=== PATIENT | male | born 1965 | race Caucasian/White ===

== ENCOUNTER 2021-05-27 07:36 | Outpatient (REF) | payer MEDICARE, SELFPAY ==
[2021-05-27 07:56] LABS: MANUAL DIFF FLAG NO
[2021-05-27 08:24] LABS: Basophils Absolute Auto 0.1 X10*3/uL (0.0-0.2); Eosinophils Absolute Auto 0.3 X10*3/uL (0.0-0.4); Eosinophils Percent Auto 2.8 % (0-4); Hematocrit 42.1 % (42-52); Hemoglobin 14.2 g/dl (14.0-18.0); Imm Gran Abs Auto 0.07 X10*3/uL (0.00-0.03); Imm Gran Pct Auto 0.7 % (0.0-0.4); Lymphocytes Absolute Auto 2.7 X10*3/uL (1.2-4.9); Lymphocytes Percent Auto 28.9 % (20-40); Mean Corpuscular HGB Conc 33.7 g/dl (31.0-36.0); Mean Corpuscular Hemoglobin 29.2 pg (27.0-33.0); Mean Corpuscular Volume 86.6 fL (80-98); Mean Platelet Volume 9.5 fL (9.4-12.4); Monocytes Absolute Auto 0.7 X10*3/uL (0.1-1.2); Monocytes Percent Auto 7.6 % (2-11); Neutrophils Absolute Auto 5.5 X10*3/uL (2.0-8.3); Platelet Count 281 X10*3/uL (160-400); Red Blood Count 4.86 X10*6/uL (4.60-5.80); Red Cell Distribution Width 13.6 % (11.0-16.0); White Blood Count 9.4 X10*3/uL (4.8-10.8)
[2021-05-27 08:51] LABS: Alanine Aminotransferase 38 U/L (0-40); Albumin Level 4.2 g/dL (3.5-5.0); Alkaline Phosphatase 138 U/L (39-117); Anion Gap 14 (12-20); Aspartate Amino Transferase 31 U/L (5-37); Bilirubin Direct 0.2 mg/dL (0.0-0.5); Bilirubin Total 0.6 mg/dL (0.0-1.0); Blood Urea Nitrogen 20 mg/dL (9-16); Carbon Dioxide 22 mmol/L (22-29); Chloride 105 mmol/L (96-108); Cholesterol 171 mg/dL; Estimated Glomerular Filt Rate > 60; Glucose Fasting 102 mg/dL (60-99); HDL Cholesterol 36 mg/dL; LDL Cholesterol Calculated 88 mg/dl; Potassium 4.3 mmol/L (3.3-5.1); Sodium 137 mmol/L (135-145); Total Protein 7.3 g/dL (6.5-8.0); Triglycerides 239 mg/dL
[2021-05-27 09:12] LABS: Prostate Specific Antigen Scr 0.17 ng/mL (<0.05-4.0)
== END 2021-05-27 07:37 | disposition home or self-care (01) ==
LOC: HO.LAB 07:36
PROVIDERS: PCP Internal Medicine; Visit Provider Internal Medicine
DX: Z00.00 Encounter for general adult medical examination without abnormal findings (principal); Z12.5 Encounter for screening for malignant neoplasm of prostate; E78.5 Hyperlipidemia, unspecified; R53.83 Other fatigue
CPT/HCPCS: 36415; 80051; 80061; 80076; 82565; 82947; 84153; 84520; 85025

== ENCOUNTER 2021-12-31 10:58 | Outpatient (REF) | payer MEDICARE, SELFPAY ==
--- NOTE | ~2021-12-31 | XR_ITS ---
EXAMINATION: XR FOOT, RIGHT CLINICAL INFORMATION: Pain over the metatarsophalangeal joint. COMPARISON: None TECHNIQUE: AP, lateral, and oblique views of the right foot. FINDINGS: No fracture or dislocation. Alignment is anatomic. Joint spaces are maintained. No periosteal reaction. The soft tissues are unremarkable. Mild hypertrophic spurring of the plantar aponeurosis and Achilles insertion to the calcaneus. XR/XR foot RT min 3V IMPRESSION: Heel spurs. No acute osseous abnormality. No stress reaction.
== END 2021-12-31 10:59 | disposition home or self-care (01) ==
LOC: HO.HMGCX 10:58
PROVIDERS: PCP Internal Medicine; Visit Provider Internal Medicine
DX: M79.671 Pain in right foot (principal)
CPT/HCPCS: 73630

== ENCOUNTER 2022-06-02 07:50 | Outpatient (REF) | payer MEDICARE, SELFPAY ==
[2022-06-02 08:21] LABS: MANUAL DIFF FLAG NO
[2022-06-02 08:46] LABS: Basophils Absolute Auto 0.1 X10*3/uL (0.0-0.2); Basophils Percent Auto 0.7 % (0-2); Eosinophils Absolute Auto 0.2 X10*3/uL (0.0-0.4); Eosinophils Percent Auto 1.9 % (0-4); Hematocrit 41.1 % (42.0-52.0); Hemoglobin 13.8 g/dl (14.0-18.0); Imm Gran Abs Auto 0.03 X10*3/uL (0.00-0.03); Imm Gran Pct Auto 0.4 % (0.0-0.4); Lymphocytes Absolute Auto 1.4 X10*3/uL (1.2-4.9); Lymphocytes Percent Auto 17.6 % (20-40); Mean Corpuscular HGB Conc 33.6 g/dl (31.0-36.0); Mean Corpuscular Hemoglobin 28.6 pg (27.0-33.0); Mean Corpuscular Volume 85.1 fL (80.0-98.0); Mean Platelet Volume 9.6 fL (9.4-12.4); Monocytes Absolute Auto 0.5 X10*3/uL (0.1-1.2); Monocytes Percent Auto 6.6 % (2-11); Neutrophils Absolute Auto 5.9 x10*3/uL (2.0-8.3); Neutrophils Percent Auto 72.8 % (45-73); Platelet Count 253 X10*3/uL (160-400); Red Blood Count 4.83 X10*6/uL (4.60-5.80); Red Cell Distribution Width 13.5 % (11.0-16.0)
[2022-06-02 09:16] LABS: Alanine Aminotransferase 15 U/L (0-40); Albumin Level 4.3 g/dL (3.5-5.0); Alkaline Phosphatase 120 U/L (39-117); Anion Gap 11 (12-20); Aspartate Amino Transferase 22 U/L (5-37); Bilirubin Direct 0.3 mg/dL (0.0-0.5); Bilirubin Total 0.6 mg/dL (0.0-1.0); Blood Urea Nitrogen 24 mg/dL (9-16); Carbon Dioxide 23 mmol/L (22-29); Chloride 106 mmol/L (96-108); Cholesterol 132 mg/dL; Estimated Glomerular Filt Rate > 60; Glucose Fasting 104 mg/dL (60-99); HDL Cholesterol 43 mg/dL; LDL Cholesterol Calculated 74 mg/dl; Potassium 4.1 mmol/L (3.3-5.1); Sodium 136 mmol/L (135-145); Total Protein 7.1 g/dL (6.5-8.0); Triglycerides 79 mg/dL
[2022-06-02 09:26] LABS: Prostate Specific Antigen Scr 0.19 ng/mL (<0.05-4.0)
== END 2022-06-02 07:51 | disposition home or self-care (01) ==
LOC: HO.LAB 07:50
PROVIDERS: PCP Internal Medicine; Visit Provider Internal Medicine
DX: Z00.00 Encounter for general adult medical examination without abnormal findings (principal); Z12.5 Encounter for screening for malignant neoplasm of prostate; R53.83 Other fatigue; E78.5 Hyperlipidemia, unspecified
CPT/HCPCS: 36415; 80051; 80061; 80076; 82565; 82947; 84153; 84520; 85025

== ENCOUNTER 2023-07-10 07:04 | Outpatient (REF) | payer MEDICARE, SELFPAY ==
[2023-07-10 07:16] LABS: MANUAL DIFF FLAG NO
[2023-07-10 07:46] LABS: Basophils Absolute Auto 0.1 X10*3/uL (0.0-0.2); Basophils Percent Auto 0.9 % (0-2); Eosinophils Absolute Auto 0.2 X10*3/uL (0.0-0.4); Eosinophils Percent Auto 1.6 % (0-4); Hematocrit 44.9 % (42.0-52.0); Hemoglobin 14.9 g/dl (14.0-18.0); Imm Gran Abs Auto 0.07 X10*3/uL (0.00-0.03); Imm Gran Pct Auto 0.7 % (0.0-0.4); Lymphocytes Percent Auto 20.1 % (20-40); Mean Corpuscular HGB Conc 33.2 g/dl (31.0-36.0); Mean Corpuscular Hemoglobin 29.6 pg (27.0-33.0); Mean Corpuscular Volume 89.1 fL (80.0-98.0); Mean Platelet Volume 9.6 fL (9.4-12.4); Monocytes Absolute Auto 0.5 X10*3/uL (0.1-1.2); Monocytes Percent Auto 4.7 % (2-11); Neutrophils Absolute Auto 7.1 x10*3/uL (2.0-8.3); Platelet Count 294 X10*3/uL (160-400); Red Blood Count 5.04 X10*6/uL (4.60-5.80); Red Cell Distribution Width 13.4 % (11.0-16.0); White Blood Count 9.8 X10*3/uL (4.8-10.8)
[2023-07-10 08:10] LABS: Alanine Aminotransferase 18 U/L (0-40); Albumin Level 4.4 g/dL (3.5-5.0); Alkaline Phosphatase 134 U/L (39-117); Anion Gap 11 (12-20); Aspartate Amino Transferase 20 U/L (5-37); Bilirubin Total 0.4 mg/dL (0.0-1.0); Blood Urea Nitrogen 25 mg/dL (9-16); Calcium 9.5 mg/dL (8.4-10.2); Carbon Dioxide 25 mmol/L (22-29); Chloride 107 mmol/L (96-108); Cholesterol 158 mg/dL (<200); Estimated Glomerular Filt Rate > 60; Glucose Fasting 109 mg/dL (60-99); HDL Cholesterol 37 mg/dL (>40); LDL Cholesterol Calculated 89 mg/dL (<100); Potassium 4.5 mmol/L (3.3-5.1); Sodium 138 mmol/L (135-145); Total Protein 7.7 g/dL (6.5-8.0); Triglycerides 160 mg/dL (<150)
[2023-07-10 08:28] LABS: Prostate Specific Antigen 0.28 ng/mL (<0.05-4.0)
== END 2023-07-10 07:05 | disposition home or self-care (01) ==
LOC: HO.LAB 07:04
PROVIDERS: PCP Internal Medicine; Visit Provider Internal Medicine
DX: R53.83 Other fatigue (principal); E78.5 Hyperlipidemia, unspecified; Z12.5 Encounter for screening for malignant neoplasm of prostate
CPT/HCPCS: 36415; 80053; 80061; 84153; 85025

== ENCOUNTER 2024-07-18 07:09 | Outpatient (REF) | payer MEDICARE, SELFPAY ==
[2024-07-18 07:24] LABS: MANUAL DIFF FLAG NO
[2024-07-18 07:32] LABS: Basophils Absolute Auto 0.1 X10*3/uL (0.0-0.2); Eosinophils Absolute Auto 0.2 X10*3/uL (0.0-0.4); Eosinophils Percent Auto 2.4 % (0-4); Hematocrit 45.3 % (42.0-52.0); Hemoglobin 15.3 g/dl (14.0-18.0); Imm Gran Abs Auto 0.07 X10*3/uL (0.00-0.03); Imm Gran Pct Auto 0.7 % (0.0-0.4); Lymphocytes Absolute Auto 1.9 X10*3/uL (1.2-4.9); Lymphocytes Percent Auto 19.5 % (20-40); Mean Corpuscular HGB Conc 33.8 g/dl (31.0-36.0); Mean Corpuscular Hemoglobin 29.4 pg (27.0-33.0); Mean Corpuscular Volume 86.9 fL (80.0-98.0); Mean Platelet Volume 9.1 fL (9.4-12.4); Monocytes Absolute Auto 0.7 X10*3/uL (0.1-1.2); Monocytes Percent Auto 6.8 % (2-11); Neutrophils Absolute Auto 6.7 x10*3/uL (2.0-8.3); Neutrophils Percent Auto 69.6 % (45-73); Platelet Count 265 X10*3/uL (160-400); Red Blood Count 5.21 X10*6/uL (4.60-5.80); Red Cell Distribution Width 13.1 % (11.0-16.0); White Blood Count 9.7 X10*3/uL (4.8-10.8)
[2024-07-18 08:09] LABS: Alanine Aminotransferase 34 U/L (0-40); Albumin Level 4.3 g/dL (3.5-5.0); Alkaline Phosphatase 149 U/L (39-117); Anion Gap 9 (12-20); Aspartate Amino Transferase 32 U/L (5-37); Bilirubin Total 0.5 mg/dL (0.0-1.0); Blood Urea Nitrogen 30 mg/dL (9-16); Carbon Dioxide 26 mmol/L (22-29); Chloride 105 mmol/L (96-108); Cholesterol 159 mg/dL (<200); Estimated Glomerular Filt Rate > 60; Glucose Fasting 110 mg/dL (60-99); HDL Cholesterol 45 mg/dL (>40); LDL Cholesterol Calculated 85 mg/dL (<100); Potassium 4.1 mmol/L (3.3-5.1); Sodium 136 mmol/L (135-145); Total Protein 7.6 g/dL (6.5-8.0); Triglycerides 145 mg/dL (<150)
[2024-07-18 08:21] LABS: Prostate Specific Antigen 0.24 ng/mL (<0.05-4.0)
== END 2024-07-18 07:10 | disposition home or self-care (01) ==
LOC: HO.LAB 07:09
PROVIDERS: PCP Internal Medicine; Visit Provider Internal Medicine
DX: E78.5 Hyperlipidemia, unspecified (principal); R53.83 Other fatigue; Z12.5 Encounter for screening for malignant neoplasm of prostate
CPT/HCPCS: 36415; 80053; 80061; 84153; 85025

== ENCOUNTER 2024-10-25 08:56 | Emergency (ER) | payer MEDICARE, SELFPAY ==
--- NOTE | ~2024-10-25 | CT_ITS ---
EXAMINATION: CT HEAD WITHOUT IV CONTRAST HISTORY: unsteadiness, difficulty walking. TECHNIQUE: Unenhanced helical CT of the head was performed per standard departmental protocol. Coronal and sagittal reformats of the head were also evaluated. One or more of the following techniques was used for dose reduction: Automated exposure control, adjustment of the mA and/or kV according to patient size, use of iterative reconstruction technique. DLP: 789 mGy-cm COMPARISON: There are no prior studies for comparison. FINDINGS: BRAIN: The brain parenchyma is unremarkable. There is normal moore/white differentiation. The ventricular system is normal in size and configuration. There is no mass effect or midline shift. No intra- or extra-axial fluid collections are identified. SINUSES: The visualized paranasal sinuses are clear. The mastoid air cells and middle ear cavities are well pneumatized. ORBITS: The visualized orbits are unremarkable. BONES/SOFT TISSUES: The extracranial soft tissues are unremarkable. The calvarium is intact. No suspicious lytic or sclerotic lesions. CT/CT head/brain wo IV con IMPRESSION: Unremarkable unenhanced head CT. Electronically signed by: Carroll Rodriguez MD 10/25/2024 10:07 AM LINDEN
[2024-10-25 08:58] VITALS: BP 157/79; PULSE 68; RESP 20; TEMP 36; O2SAT 98; BMI 29.7
--- NOTE | 2024-10-25 09:16 | ECG_ITS ---
Test Reason : NEURO SYMPTOMS Blood Pressure : */* mmHG Vent. Rate : 68 BPM Atrial Rate : 68 BPM P-R Int : 168 ms QRS Dur : 112 ms QT Int : 398 ms P-R-T Axes : 77 32 23 degrees QTcB Int : 423 ms Normal sinus rhythm Normal ECG No previous ECGs available Referred By: [facility] Electronically Signed By: Senthil Tai
--- NOTE | 2024-10-25 09:16 | ED.NEUROSD ---
HPI - Neuro Symptoms/Deficit General Chief Complaint: Neuro Symptoms/Deficit Stated Complaint: dizzy stumbling lightheaded Time Seen by Provider: 10/25/24 09:16 History of Present Illness ED Provider: Alma Rosa PARIKH Narrative: The patient is a 59-year-old male with a history of chronic back problems for many years for which he takes multiple medications. He took all of his usual nighttime medications yesterday evening at around 21:00 when he went to bed. He woke up at around 02:30 this morning and felt that he was somewhat unsteady on his feet and possibly tilting slightly to the right when he walked. He went back to bed woke up several hours later. He felt that he was somewhat lightheaded and he still felt that he was tilting to the right when he is walking. No significant headache. No chest pain. No shortness of breath. No fever, sweats, chills. Related Data Previous Rx's ?Medication ?Instructions ?Recorded meclizine 25 mg tablet 25 mg PO TID PRN dizziness #10 tabs 10/25/24 Allergies Allergy/AdvReac Type Severity Reaction Status Date / Time No Known Allergies Allergy Verified 10/25/24 09:02 Review of Systems Review of Systems: Yes all other systems are reviewed and are negative [facility] Social History Social History Smoked in Last 30 Days: No Use of substances other than those prescribed or required for medical reasons: No Advance Directives: No Advance Directives Information Provided: Yes Do you have a plan to hurt others: No Plan Physical Exam Vital Signs: Vital Signs: Last Vital Signs Temp 0 F L 10/25/24 11:46 Pulse 56 10/25/24 11:46 Resp 18 10/25/24 11:46 BP 128/68 10/25/24 11:46 Pulse Ox 97 10/25/24 11:46 O2 Del Method Room Air 10/25/24 11:46 BMI result Body Mass Index 29.7 Const: Other: The patient was awake and alert with a normal mental status. He did not appear obviously acutely ill or in distress. HEENT: Other: Face is symmetrical. Mucous membranes moist. Tongue is midline. Eyes: General: appearance normal, both eyes and all related structures Visual Wen: normal visual wen by confrontation Pupils: Equal, round and reactive pupils present EOM: EOMs intact bilaterally Neck: Neck: Yes full ROM Resp: Effort & Inspection: normal respiratory effort Auscultation: clear to auscultation bilaterally Cardio: Rate: regular rate Rhythm: regular rhythm Heart sounds: S1 normal heart sound present and S2 normal heart sound present GI: Other: Abdomen is soft and nontender Skin: Other: skin is dry and unremarkable Neuro: Other: the patient is awake and alert with a normal mental status and normal orientation. He follows commands appropriately. Eye movements are intact. Lateral gaze is intact. Visual wen are intact to confrontation. Face is symmetrical bilaterally, tongue is midline, strength is symmetrical and 5/5 in all 4 extremities. No pronator drift. Finger-nose is normal. Heel-sanchez is normal. Gait is steady. Cranial nerves: Yes Equal, round and reactive pupils present Extrem: Other: No peripheral edema Medications Administered Discontinued Medications Generic Name Dose Route Start Last Admin Trade Name Freq PRN Reason Stop Dose Admin Sodium Chloride 1,000 mls @ 999 mls/hr 10/25/24 09:30 10/25/24 11:31 Ns IV 10/25/24 10:30 Infused .Q1H1M MACARIO Infusion Meclizine HCl 25 mg 10/25/24 11:29 10/25/24 11:41 Meclizine Hcl 25 Mg Tablet PO 10/25/24 11:30 25 mg ONCE ONE Administration Medical Decision Making Medical Decision Making [facility] Narrative: I was asked to see this patient promptly out of concern for a possible case of a stroke. The patient's last known well was yesterday evening when he went to bed at around 22:00. He had apparently woken up at 02:30 this morning to use the bathroom and felt dizzy and lightheaded. He was worried he might be drifting to the right. He went back to sleep and woke up with similar symptoms this morning. He was concerned about these symptoms and came to the emergency room. No significant headache. He has no objective findings on his neurological exam. His EKGs unremarkable. He is in sinus rhythm. A head CT is negative. Labs are unremarkable. He was given a L of IV normal saline and seemed to feel better. My suspicion for a stroke is very low. Whether this is an orthostatic phenomenon or whether this is some mild inner ear dysfunction is much more likely I think. He will be discharged with a prescription for meclizine and should follow up with his regular doctor. He should return if worse. Lab Data 10/25/24 10:00 10/25/24 09:59 Labs: Lab Results 10/25/24 10/25/24 Range/Units 09:59 10:00 WBC 5.3 (4.8-10.8) X10*3/uL RBC 4.60 (4.60-5.80) X10*6/uL Hgb 13.5 L (14.0-18.0) g/dl Hct 39.9 L (42.0-52.0) % MCV 86.7 (80.0-98.0) fL MCH 29.3 (27.0-33.0) pg MCHC 33.8 (31.0-36.0) g/dl RDW 13.6 (11.0-16.0) % Plt Count 260 (160-400) X10*3/uL MPV 9.4 (9.4-12.4) fL Immature Gran % (Auto) 0.4 (0.0-0.4) % Neut % (Auto) 66.9 (45-73) % Lymph % (Auto) 20.9 (20-40) % [place] % (Auto) 8.2 (2-11) % Eos % (Auto) 2.3 (0-4) % Baso % (Auto) 1.3 (0-2) % Lymph # (Auto) 1.1 L (1.2-4.9) X10*3/uL [place] # (Auto) 0.4 (0.1-1.2) X10*3/uL Eos # (Auto) 0.1 (0.0-0.4) X10*3/uL Baso # (Auto) 0.1 (0.0-0.2) X10*3/uL Abs Immat Gran (auto) 0.02 (0.00-0.03) X10*3/uL Absolute Neuts (auto) 3.5 (2.0-8.3) x10*3/uL Absolute Nucleated RBC 0.000 (0.0-0.012) X10*3/uL Nucleated RBC % (auto) 0.0 (0.0-0.2) /100WBC PT 10.3 L (10.9-12.4) SEC INR 0.9 (0.9-1.1) Sodium 139 (135-145) mmol/L Potassium 4.3 (3.3-5.1) mmol/L Chloride 111 H (96-108) mmol/L Carbon Dioxide 24 (22-29) mmol/L Anion Gap 8 L (12-20) BUN 24 H (9-16) mg/dL Creatinine 0.81 (0.5-1.4) mg/dL Estim Creat Clear Calc 139.2 Estimated GFR > 60 Random Glucose 109 (60-115) mg/dL Calcium 9.0 D (8.4-10.2) mg/dL Magnesium 2.2 (1.6-2.6) mg/dL Total Bilirubin 0.3 (0.0-1.0) mg/dL Direct Bilirubin 0.1 (0.0-0.5) mg/dL AST 41 H (5-37) U/L ALT 32 (0-40) U/L Alkaline Phosphatase 133 H (39-117) U/L Troponin I High Sens < 2.7 (<3.5-35.0) ng/L C-Reactive Protein 0.69 H (< or = 0.50) mg/dL B-Natriuretic Peptide 60 (<100) pg/mL Total Protein 7.2 (6.5-8.0) g/dL Albumin 4.0 (3.5-5.0) g/dL Ethyl Alcohol < 10 mg/dL Influenza Type A (PCR) NEGATIVE (Negative) Influenza Type B (PCR) NEGATIVE (Negative) RSV RNA Qual (PCR) NEGATIVE (Negative) SARS-CoV-2 RNA (RT-PCR) NEGATIVE (Negative) Independent Interpretation I performed an independent interpretation of an: EKG Interpretation: EKG at 09:53 shows normal sinus rhythm at 68 beats per minute. It is an unremarkable EKG. Discharge Plan Discharge Clinical Impression: Dizziness Patient Disposition: Home, Self-Care Additional Instructions: Your testing in the emergency room today seems reassuring. It is possible that the symptoms you were experiencing might has been from a dysfunction of your inner ear. The inner ear is the gyroscope of the body and sometimes it can miss function and cause room spinning dizziness. Meclizine is a medication that can sometimes help with the symptoms. If you have ongoing symptoms of room spinning dizziness you may try the meclizine. Please contact your regular doctor's office today to try to get a follow up appointment soon for a 2nd opinion. If you think you are having worsening symptoms or if you develop any additional symptoms please return to the emergency room for another evaluation here. Prescriptions: New meclizine 25 mg tablet 25 mg PO TID PRN (Reason: dizziness) Qty: 10 0RF Referrals: Kenan Pineda MD [Primary Care Provider] - ( Dizziness, possible vertigo) Interventions: ED Discharge Assessment Last Done: 10/25/24 11:46 Discharge Date/Time: 10/25/24 11:47 Print Language: Faroese
[2024-10-25 10:05] VITALS: BP 128/76; PULSE 63; RESP 18; O2SAT 97
[2024-10-25] MEDS: 0.9 % Sodium Chloride 1,000 ML 999 ML IV (10:05)
[2024-10-25 10:06] LABS: MANUAL DIFF FLAG NO
[2024-10-25 10:10] LABS: Basophils Absolute Auto 0.1 X10*3/uL (0.0-0.2); Basophils Percent Auto 1.3 % (0-2); Eosinophils Absolute Auto 0.1 X10*3/uL (0.0-0.4); Eosinophils Percent Auto 2.3 % (0-4); Hematocrit 39.9 % (42.0-52.0); Hemoglobin 13.5 g/dl (14.0-18.0); Imm Gran Abs Auto 0.02 X10*3/uL (0.00-0.03); Imm Gran Pct Auto 0.4 % (0.0-0.4); Lymphocytes Absolute Auto 1.1 X10*3/uL (1.2-4.9); Lymphocytes Percent Auto 20.9 % (20-40); Mean Corpuscular HGB Conc 33.8 g/dl (31.0-36.0); Mean Corpuscular Hemoglobin 29.3 pg (27.0-33.0); Mean Corpuscular Volume 86.7 fL (80.0-98.0); Mean Platelet Volume 9.4 fL (9.4-12.4); Monocytes Absolute Auto 0.4 X10*3/uL (0.1-1.2); Monocytes Percent Auto 8.2 % (2-11); Neutrophils Absolute Auto 3.5 x10*3/uL (2.0-8.3); Neutrophils Percent Auto 66.9 % (45-73); Platelet Count 260 X10*3/uL (160-400); Red Cell Distribution Width 13.6 % (11.0-16.0); White Blood Count 5.3 X10*3/uL (4.8-10.8)
[2024-10-25 10:21] LABS: INTERNATIONAL NORM RATIO 0.9 (0.9-1.1); Prothrombin Time 10.3 SEC (10.9-12.4)
[2024-10-25 10:29] LABS: Alanine Aminotransferase 32 U/L (0-40); Alkaline Phosphatase 133 U/L (39-117); Anion Gap 8 (12-20); Aspartate Amino Transferase 41 U/L (5-37); Bilirubin Direct 0.1 mg/dL (0.0-0.5); Bilirubin Total 0.3 mg/dL (0.0-1.0); Blood Urea Nitrogen 24 mg/dL (9-16); C Reactive Protein 0.69 mg/dL (< or = 0.50); Carbon Dioxide 24 mmol/L (22-29); Chloride 111 mmol/L (96-108); Creatinine Clr Calc Pharmacy 139.2; Estimated Glomerular Filt Rate > 60; Ethanol < 10 mg/dL; Glucose Random 109 mg/dL (60-115); Magnesium 2.2 mg/dL (1.6-2.6); Potassium 4.3 mmol/L (3.3-5.1); Sodium 139 mmol/L (135-145); Total Protein 7.2 g/dL (6.5-8.0)
[2024-10-25 10:38] LABS: Troponin-I High Sensitivity < 2.7 ng/L (<3.5-35.0)
[2024-10-25 10:44] LABS: B Type Natriuretic Peptide 60 pg/mL (<100)
[2024-10-25 11:02] LABS: Influenza A PCR NEGATIVE (Negative); Influenza B PCR NEGATIVE (Negative); Resp Syncy Virus RNA Qual PCR NEGATIVE (Negative); SARS COV2 PCR INHOUSE NEGATIVE (Negative)
[2024-10-25] MEDS: Meclizine HCl 25 MG TABLET PO (11:41)
[2024-10-25 11:46] VITALS: BP 128/68; PULSE 56; RESP 18; TEMP -17.7; TEMP 0; O2SAT 97
== END 2024-10-25 11:47 | disposition home or self-care (01) ==
PROVIDERS: Emergency Provider Emergency Medicine; PCP Internal Medicine
DX: R42 Dizziness and giddiness (principal); R26.81 Unsteadiness on feet; R11.0 Nausea; M54.50 Low back pain, unspecified; Z79.899 Other long term (current) drug therapy; Z51.81 Encounter for therapeutic drug level monitoring; Z03.818 Encounter for observation for suspected exposure to other biological agents ruled out
CPT/HCPCS: 0241U; 36415; 70450; 80048; 80076; 80307; 83735; 83880; 84484; 85025; 85610; 86140; 93005; 96360; 99284; 99285

== ENCOUNTER → 2024-10-25 09:16 | Outpatient (BNV) | payer MEDICARE, SELFPAY | PROVIDERS: Emergency Provider Emergency Medicine; PCP Internal Medicine; Visit Provider Internal Medicine Cardiovascular Disease | DX: R29.818 Other symptoms and signs involving the nervous system (principal) | CPT/HCPCS: 93010 ==

== ENCOUNTER → 2024-10-25 09:17 | Outpatient (BNV) | payer MEDICARE, SELFPAY | PROVIDERS: Emergency Provider Emergency Medicine; PCP Internal Medicine; Visit Provider Radiology Diagnostic Radiology | DX: R26.89 Other abnormalities of gait and mobility (principal) | CPT/HCPCS: 70450 ==

== ENCOUNTER 2025-03-26 14:57 | Outpatient (AMB) | payer MEDICARE, SELFPAY ==
--- NOTE | 2025-03-25 13:00 | MHC.PC.OV ---
Vital Signs 03/25/25 14:52 Height 6 ft 6 in Weight 256 lb BMI 29.6 BP 136/96 H Position Sitting Respiration 16 Pulse 90 Pulse Source Pulse Oximeter Temp 97.9 F Temp Source Temporal Artery Scan Pulse Oximetry (%) 97 Oxygen Delivery Method Room Air Intake Visit Reasons: Est Care/Dr. Pineda ~ herniated disk Victim Advocate Required: No Accompanied by: Self / Same As Patient Allergies No Known Allergies Allergy (Verified 03/26/25 17:39) Medication List - Last Reconciled 03/26/25 by Marta Amato PA-C ibuprofen 800 mg PO TID meclizine 25 mg PO TID PRN oxycodone ER 20 mg PO TID PRN simvastatin 20 mg PO BEDTIME topiramate 100 mg PO BID tramadol 100 mg PO BID PRN Tobacco use date assessed: 03/25/25 Dental Screening Dental Screen Date: 03/25/25 Did you have a dental visit in the last 12 months?: Yes Did you have a dental problem in the last 6 months where you did not have access to dental care?: No Was dental information given to patient?: Patient has dentist HPI Est Care/Dr. Pineda ~ herniated disk HPI Details This is a 60-year-old male with a past medical history of chronic back pain due to herniated disc and lumbar spine L5-S1 with a history of back surgery in 2002 resulting in chronic right foot numbness. He has has had nerve root blocks in the past at [facility] which provided no symptomatic relief. Patient is currently on tramadol 50 mg 2 tablets t.i.d. daily along with OxyContin 20 mg t.i.d. daily. He reports he has been on this regimen for quite some time. He was a patient of Dr. Katrin ray for new patient appointment requesting refills. Patient also has a history of vertigo currently on meclizine 25 mg t.i.d. as needed, ibuprofen 800 mg t.i.d. for his chronic pain, simvastatin 20 mg at bedtime for hypercholesterolemia, topiramate. He denies any acute complaints, dizziness, chest pain, abdominal pain, black or bloody stools. [facility] Medical History Mild hypercholesterolemia Vertigo Chronic pain Family History Father No problems noted. Mother No problems noted. Social History Housing: House Alcohol intake: current Alcohol intake frequency: does not drink Patient Tobacco Use Status: Former Tobacco user service: No Current occupational status: retired Cognitive needs: No Hearing needs: No Vision needs: Yes (reading glasses) Questionnaire PHQ-9 Over the last 2 weeks, how often have you been bothered by any of the following problems? 1. Little interest or pleasure in doing things: not at all 2. Feeling down, depressed, or hopeless: not at all 3. Trouble falling or staying asleep, or sleeping too much: not at all 4. Feeling tired or having little energy: not at all 5. Poor appetite or overeating: not at all 6. Feeling bad about yourself - or that you are a failure or have let yourself or your family down: not at all 7. Trouble concentrating on things, such as reading the newspaper or watching television: not at all 8. Moving or speaking so slowly that other people could have noticed. Or the opposite - being so fidgety or restless that you have been moving around a lot more than usual: not at all 9. Thoughts that you would be better off or of hurting yourself in some way: not at all Total score: 0 Depression Screening Interpretation: Negative Depression Screening Done: Yes 19841 - PHQ-9 Billing: Yes Source: Developed by Drs. Carroll Anderson, Stacia Gardner, Osmel Rios and colleagues, with an educational xi from [employer]. Thrive Questionnaire Date Thrive assessed: 03/25/25 I am a: Patient What is your living situation today?: I have a steady place to live Within the past 12 months, did the food you bought not last and you didn't have the money to get more?: Never true Within the past 12 months, did you worry whether your food would run out before you got money to buy more?: Never true Do you have trouble paying for medicines?: No Do you have trouble getting transportation to medical appointments?: No Do you have trouble paying your heating and electricity bill?: No Do you have trouble taking care of your child, family member or friend?: No Do you have trouble with day-to-day activities such as bathing, preparing meals, shopping, managing finances, etc.?: No Are you currently unemployed and looking for a job?: No Are you interested in more education?: No Please select the resources that you would like help with: None Currently or been in a relationship where the following occur: No concerns reported THRIVE Score: 0 AUDIT C Alcohol Use Questionnaire (AUDIT-C) 1. How often do you have a drink containing alcohol?: Never 3. How often do you have six or more drinks on one occasion?: Never Total Score: 0 Score Reviewed/Action Taken: No TYREE-7 AMB Questionnaire TYREE-7 Date TYREE - 7 assessed: 03/25/25 Feeling nervous, anxious, or on edge: 0 = Not at all Not being able to stop or control worryin = Not at all Worrying too much about different things: 0 = Not at all Trouble relaxin = Not at all Being so restless that it is hard to sit still: 0 = Not at all Becoming easily annoyed or irritable: 0 = Not at all Feeling afraid as if something awful might happen: 0 = Not at all Total TYREE-7 score (0-4 normal; 5-9 mild; 10-14 moderate; 15-21 severe): 0 Source: Developed by Drs. Carroll Anderson, Stacia Gardner, Osmel Rios and colleagues, with an educational xi from [employer]. TYREE-7 Assessment Billing TYREE-7 Assessment Tool: TYREE-7 Assessment 81278 Review of Systems Const All systems reviewed & are unremarkable except as noted in HPI and below Physical exam (Primary Care) Vital Signs: Last Vital Signs Temp 97.9 F 03/25/25 14:52 Pulse 90 03/25/25 14:52 Resp 16 03/25/25 14:52 BP 136/96 H 03/25/25 14:52 Pulse Ox 97 03/25/25 14:52 Oxygen Delivery Method Room Air 03/25/25 14:52 Care Plan Goal for BP management: <140/90 BMI result Body Mass Index 29.6 BMI Assessment/Plan discussion: High BMI High, discussed plan: lifestyle, weight reduction, dietary, physical activity and alcohol moderation Tobacco/Smoking Status: Tobacco use Status Tobacco use date assessed 03/25/25 03/25/25 13:05 Patient Tobacco Use Status Former Tobacco user 03/26/25 14:54 PHQ-9: PHQ-9 Score PHQ-9: Total score 0 03/26/25 14:55 Depression Screening Interpretation: Negative Thrive Assessment: Date of Thrive Assessment Date Thrive assessed 03/25/25 03/25/25 13:05 Currently or been in a relationship where the following occur: No concerns reported Const Other: Appearance: Alert. Oriented X3. No acute distress. Head: Normal external exam. Normocephalic. Atraumatic. Eyes: Pupils are equal, round, and reactive to light. Extraocular movements intact. Conjunctiva and sclera normal. Eyelids normal. Throat: Pharynx normal. Uvula midline. Moist mucous membranes. Neck: Normal inspection. Neck supple. Full range of motion. . Cardiovascular: Normal heart rate and rhythm. Heart sound normal. No murmurs noted. Pulses normal throughout. Respiratory: No respiratory distress. Painless inspiration. Back:Full range of motion noted. Skin: Skin warm and dry. Normal skin color. Normal skin turgor. No rashes/lesions/lacerations noted. Extremities: Extremities exhibit normal range of motion. Neuro: Oriented X 3. No motor deficit. No sensory deficit. Reflexes normal. Results Reviewed Results Reviewed: Labs reviewed patient has mild anemia with an H&H of 13.5/39.9. Platelet count and white blood cell count normal. Chloride 111. Anion gap 8 which is chronic. BUN 24 which is chronic. GFR 60. Creatinine 0.81. Magnesium within normal limits. Calcium normal limits. AST at 41 mildly elevated alkaline phosphate 133 which is chronic. Mild elevation in CRP. All other labs are within normal limits. Patient had cholesterol labs last year which were within normal limits. PSA last year which was then normal limits. Coding Level of Care Code New Pt Level 4 (30044) Complex EM visit Add On G2211 Diagnoses Chronic pain G89.29 Vertigo R42 Mild hypercholesterolemia E78.00 Additional Codes TYREE-7 Assessment Billing - TYREE-7 Assessment Tool: TYREE-7 Assessment 69018 ([id number]) PHQ-9 - 62170 - PHQ-9 Billing: Yes ([id number]) Time Spent (min) 45 Assessment & Plan Assessment & Plan (1) Chronic pain: Code(s): G89.29 - Other chronic pain Category: Medical Plan: We will be reducing the patient's tramadol from 300 mg daily to 200 mg daily and the OxyContin from 20 mg t.i.d. to 20 mg b.i.d. for weeks 1 2 for, weeks 5q8 will be reducing tramadol to 1 tablet t.i.d. and OxyContin 15 mg b.i.d. weeks 9 through 12 we will be reducing the tramadol to 50 mg b.i.d. and OxyContin 10 mg b.i.d., weeks 13 through 16 will be reducing tramadol to 50 mg daily and OxyContin to 10 mg daily week 17 through 20 we will stop tramadol and switch OxyContin to short-acting oxycodone 5 mg b.i.d. PRN weeks 21 through 24 will either continue oxycodone 5 mg b.i.d. or discontinue oxycodone completely at that time (2) Vertigo: Code(s): R42 - Dizziness and giddiness Category: Medical Plan: Patient to continue meclizine condition is chronic and stable will continue to monitor. (3) Mild hypercholesterolemia: Code(s): E78.00 - Pure hypercholesterolemia, unspecified Category: Medical Plan: Patient to continue simvastatin 20 mg at bedtime. Condition is chronic and stable continue to monitor. Plan 1. Chronic pain We will be reducing the patient's tramadol from 300 mg daily to 200 mg daily and the OxyContin from 20 mg t.i.d. to 20 mg b.i.d. for weeks 1 2 for, weeks 5q8 will be reducing tramadol to 1 tablet t.i.d. and OxyContin 15 mg b.i.d. weeks 9 through 12 we will be reducing the tramadol to 50 mg b.i.d. and OxyContin 10 mg b.i.d., weeks 13 through 16 will be reducing tramadol to 50 mg daily and OxyContin to 10 mg daily week 17 through 20 we will stop tramadol and switch OxyContin to short-acting oxycodone 5 mg b.i.d. PRN weeks 21 through 24 will either continue oxycodone 5 mg b.i.d. or discontinue oxycodone completely at that time 2. Vertigo Patient to continue meclizine condition is chronic and stable will continue to monitor. 3. Hypercholesterolemia Patient to continue simvastatin 20 mg at bedtime. Condition is chronic and stable continue to monitor. Orders: Referrals Pain Management Referral G89.29 - Other chronic pain Medications: New ibuprofen 800 mg PO TID 90 tabs 3RF simvastatin 20 mg PO BEDTIME 90 tabs 3RF naloxone 4 mg/actuation (Narcan) spray 1 dose into ONE nostril; alternate nostrils w each dose until help arrives 4 mg intranasal Q2M PRN 2 ea 2RF opioid overdose simvastatin 20 mg PO BEDTIME 90 tabs 1RF topiramate 100 mg PO BID 90 days 180 tabs 3RF topiramate 100 mg PO BID 180 tabs 3RF 90 days tramadol 100 mg (2 x 50 mg) PO BID PRN 120 tabs 0RF pain 30 days oxycodone ER (OxyContin) Partial Fill upon patient request. 20 mg PO BID 30 days 60 tabs 0RF oxycodone ER (OxyContin) Partial Fill upon patient request. 20 mg PO BID 60 tabs 0RF 30 days Changed From meclizine 25 mg PO TID PRN 10 tabs 0RF dizziness To meclizine 25 mg PO TID 90 days PRN 90 tabs 3RF dizziness Refilled meclizine 25 mg PO TID PRN 90 tabs 3RF dizziness 90 days Patient Instructions: 1. Chronic pain We will be reducing the patient's tramadol from 300 mg daily to 200 mg daily and the OxyContin from 20 mg t.i.d. to 20 mg b.i.d. for weeks 1 2 for, weeks 5q8 will be reducing tramadol to 1 tablet t.i.d. and OxyContin 15 mg b.i.d. weeks 9 through 12 we will be reducing the tramadol to 50 mg b.i.d. and OxyContin 10 mg b.i.d., weeks 13 through 16 will be reducing tramadol to 50 mg daily and OxyContin to 10 mg daily week 17 through 20 we will stop tramadol and switch OxyContin to short-acting oxycodone 5 mg b.i.d. PRN weeks 21 through 24 will either continue oxycodone 5 mg b.i.d. or discontinue oxycodone completely at that time 2. Vertigo Patient to continue meclizine condition is chronic and stable will continue to monitor. 3. Hypercholesterolemia Patient to continue simvastatin 20 mg at bedtime. Condition is chronic and stable continue to monitor.
[2025-03-25 14:52] VITALS: BP 136/96; PULSE 90; RESP 16; TEMP 36.6; O2SAT 97; BMI 29.6
--- OUTSIDE RECORDS SUMMARY | 2025-03-26 15:41 | XMS_ITS | Patient Health Record ---
Author Organization [facility] Address [address] [place] [address] Care Team Providers Care Board Filler Name Role Phone Kenan Pineda MD Primary Care Provider Unavailab Danny Caro Unavailable [phone] Allergies Allergen (clinical drug ingredient) Drug/Non Drug Allergy documented on EMR Reaction Allergy Type Onset Date Status steroid pills (uncoded) rash Allergy Active Reason For Referral No Information Medications Medication SIG (Take, Route, Fr equency, Duration) Notes Start Date End Date Status Topiramate 100 MG Oral; Duration: 30 Active Simvastatin 20 MG Oral; Duration: 90 Active traMADol HCl 50 MG 2 tablets Orally Thr ee times a day Active oxyCODONE HCl 20 MG 1 tablet as needed O rally Three times a day 3 x a day 06/03/2019 Active Ibuprofen 800 MG Orally Three times a day Active Social History Tobacco Use: Social History Observation Description Date Details (start date - stop date) Never Smoker NA - NA Tobacco Use/Smoking Question Answer Notes Are you a: nonsmoker Alcohol Screen Question Answer Notes Did you have a drink containing alcohol in the p ast year? No Points 0 Interpretation Negative Plan Of Treatment No Information Insurance Providers Payer Name Payer Address Payer Phone Subscriber Number Group Number Insured Name Patient Relationship to Insured Coverage Start Date Coverage End Date [employer] [address] [place] [address] [id number] Vince Hudson Self - patient is the insured Medical (General) History Medical History History ICD Code Back pain CAD Surgical History Surgery Date(Month/Year) herniated disk repair 05/2003
--- OUTSIDE RECORDS SUMMARY | 2025-03-26 15:42 | XMS_ITS | Patient Health Record ---
Author Organization [facility] Address [address] [place] [address] Care Team Providers Care Data Capture Clerk Name Role Phone Miriam (RETIRED) Kenan LABOY Primary Care Provider Unavailable Saman Valdez Jr Unavailable [phone] Reason For Referral No Information Medications Medication SIG (Take, Route, Fr equency, Duration) Notes Start Date End Date Status Topamax 100mg Active Testosterone gel Act ramiro Simvastatin 20mg Act ramiro OxyCONTIN 20mg Activ e Fluoxetine 20mg Acti ve traMADol HCl 100mg A ctive Ibuprofen 800mg Acti ve OsmoPrep 1.102-0.398 GM 32 tablets Orall y over two days as directed for 2 day(s) 10/06/2011 Active Problems Problem Type SNOMED Code ICD Code Onset Dates Problem Status W/U Status Risk Notes Problem Nonspecific abnormal finding in stool contents (792.1) Active confirmed Plan Of Treatment Future Test Test Name Order Date COLONOSCOPY 10/06/2011 Insurance Providers Payer Name Payer Address Payer Phone Subscriber Number Group Number Insured Name Patient Relationship to Insured Coverage Start Date Coverage End Date MEDICARE OF [employer] [address] [place] [address] [phone] [id number] Self - patient is the insured Medical (General) History Medical History History ICD Code disc disease depression elevated cholesterol low testosterone Surgical History Surgery Date(Month/Year) back surgery
== END 2025-03-26 14:58 | disposition home or self-care (01) ==
LOC: HO.HMCSH 14:58
PROVIDERS: PCP Internal Medicine; Visit Provider Physician Assistant Medical
DX: G89.29 Other chronic pain (principal); R42 Dizziness and giddiness; E78.00 Pure hypercholesterolemia, unspecified

== ENCOUNTER → 2025-03-26 14:57 | Outpatient (BNVA) | payer MEDICARE, SELFPAY | PROVIDERS: PCP Internal Medicine; Visit Provider Physician Assistant Medical | DX: G89.29 Other chronic pain (principal); R42 Dizziness and giddiness; E78.00 Pure hypercholesterolemia, unspecified | CPT/HCPCS: 96127; 99202 ==

== ENCOUNTER 2025-04-29 08:02 | Outpatient (AMB) | payer MEDICARE, SELFPAY ==
--- NOTE | 2025-04-29 08:04 | A.OFFPC_ITS ---
Vital Signs 04/29/25 08:11 Height 6 ft 6 in Weight 257 lb 0.2 oz BMI 29.7 BP 158/76 H Blood Pressure Location Rt brachial Pulse 41 L Pulse Source Pulse Oximeter Temp 98.2 F Temp Source Axillary Pulse Oximetry (%) 97 Intake Visit Reasons: 4 week Allergies No Known Allergies Allergy (Verified 04/29/25 08:42) Medication List - Last Reconciled 04/29/25 by Dez Hernández MD ibuprofen 800 mg PO TID naloxone 4 mg/actuation (Narcan) 4 mg intranasal Q2M PRN oxycodone ER (OxyContin) 20 mg PO BID 30 days simvastatin 20 mg PO BEDTIME topiramate 100 mg PO BID tramadol 100 mg (2 x 50 mg) PO BID PRN 30 days Tobacco use date assessed: 03/25/25 Dental Screening Dental Screen Date: 03/25/25 [facility] Medical History Mild hypercholesterolemia Vertigo Chronic pain Family History Father No problems noted. Mother No problems noted. Social History Housing: House Alcohol intake: current Alcohol intake frequency: does not drink Patient Tobacco Use Status: Former Tobacco user service: No Current occupational status: retired Cognitive needs: No Hearing needs: No Vision needs: Yes (reading glasses) Questionnaire PHQ-9 Over the last 2 weeks, how often have you been bothered by any of the following problems? 1. Little interest or pleasure in doing things: not at all 2. Feeling down, depressed, or hopeless: not at all 3. Trouble falling or staying asleep, or sleeping too much: not at all 4. Feeling tired or having little energy: not at all 5. Poor appetite or overeating: not at all 6. Feeling bad about yourself - or that you are a failure or have let yourself or your family down: not at all 7. Trouble concentrating on things, such as reading the newspaper or watching television: not at all 8. Moving or speaking so slowly that other people could have noticed. Or the opposite - being so fidgety or restless that you have been moving around a lot more than usual: not at all 9. Thoughts that you would be better off or of hurting yourself in some way: not at all Total score: 0 Depression Screening Interpretation: Negative Depression Screening Done: Yes 13748 - PHQ-9 Billing: Yes Source: Developed by Drs. Carroll Anderson, Stacia Gardner, Osmel Rios and colleagues, with an educational xi from [employer]. Thrive Questionnaire Date Thrive assessed: 03/25/25 I am a: Patient What is your living situation today?: I have a steady place to live Within the past 12 months, did the food you bought not last and you didn't have the money to get more?: Never true Within the past 12 months, did you worry whether your food would run out before you got money to buy more?: Never true Do you have trouble paying for medicines?: No Do you have trouble getting transportation to medical appointments?: No Do you have trouble paying your heating and electricity bill?: No Do you have trouble taking care of your child, family member or friend?: No Do you have trouble with day-to-day activities such as bathing, preparing meals, shopping, managing finances, etc.?: No Are you currently unemployed and looking for a job?: No Are you interested in more education?: No Please select the resources that you would like help with: None Currently or been in a relationship where the following occur: No concerns reported THRIVE Score: 0 TYREE-7 AMB Questionnaire TYREE-7 Date TYREE - 7 assessed: 03/25/25 Feeling nervous, anxious, or on edge: 0 = Not at all Not being able to stop or control worryin = Not at all Worrying too much about different things: 0 = Not at all Trouble relaxin = Not at all Being so restless that it is hard to sit still: 0 = Not at all Becoming easily annoyed or irritable: 0 = Not at all Feeling afraid as if something awful might happen: 0 = Not at all Total TYREE-7 score (0-4 normal; 5-9 mild; 10-14 moderate; 15-21 severe): 0 Source: Developed by Drs. Carroll Anderson, Osmel Morrisonoenke and colleagues, with an educational xi from [employer]. TYREE-7 Assessment Billing TYREE-7 Assessment Tool: TYREE-7 Assessment 47994 Physical exam (Primary Care) Tobacco/Smoking Status: Tobacco use Status Tobacco use date assessed 03/25/25 04/29/25 08:09 Patient Tobacco Use Status Former Tobacco user 04/29/25 08:09 PHQ-9: PHQ-9 Score PHQ-9: Total score 0 04/29/25 08:09 Depression Screening Interpretation: Negative Thrive Assessment: Date of Thrive Assessment Date Thrive assessed 03/25/25 04/29/25 08:09 Currently or been in a relationship where the following occur: No concerns reported Coding Level of Care Code Est Pt Level 4 (56802) Complex EM visit Add On G2211 Diagnoses Chronic pain G89.29 Additional Codes TYREE-7 Assessment Billing - TYREE-7 Assessment Tool: TYREE-7 Assessment 81082 ([id number]) PHQ-9 - 70577 - PHQ-9 Billing: Yes ([id number]) Assessment & Plan Assessment & Plan (1) Chronic pain: Code(s): G89.29 - Other chronic pain Category: Medical Plan: Urine screen ordered. Pain contract offered to patient for review. Comprehensive care appt given. OXycontin dosage being reduced. Plan History of Present Illness - The patient is a 60-year-old male presenting with chronic pain management. - The patient reports a reduction in OxyContin from 90 to 60 pills, which he manages by taking one every 12 hours, but experiences pain around the 10th hour. - He expresses concern that further reduction may impact his quality of life and ability to work. - The patient underwent surgery on June 26, 2003, during which a nerve was possibly affected, resulting in 80% numbness in the right foot. - He experiences increased numbness and pain with prolonged walking and st anding. - The patient has been on opioid medication for over 20 years and is concerned about the tapering process. - He is involved with Workman's Compensation, which covers his medication costs, and has legal concerns regarding changes without judicial approval. - Preventative care measures discussed include colon cancer screening, with options for Cologuard or scheduling a colonoscopy. 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 - Legal: Involved with Workman's Compensation for medication coverage. Review of Systems - Neurological: Reports numbness in the right foot and increased pain with prolonged walking. - Musculoskeletal: Reports chronic back pain, exacerbated towards the end of the medication cycle. Physical Exam General: Cooperative and healthy appearing Nutritional Appearance: Well nourished Orientation/consciousness: Patient oriented x3 Limitations: No limitations Head: Normal to inspection General: Appearance normal, both eyes and all related structures Neck: Normal visual inspection Chest: Normal palpation of entire chest wall Respiratory: N ormal respiratory effort Neurology: Patient oriented x3, reports right foot 80% numbness since surgery on June 26, 2003. Results Plan 1. Chronic Pain Management - The plan involves reducing OxyContin dosage to 15 mg twice a day or 10 mg three times a day, with a gradual tapering strategy. - Consideration of transitioning to Suboxone (buprenorphine) for long-term pain management. - Referral to pain management for evaluation and potential alternative therapies. 2. Neuropathy Post-Surgery - Continued monitoring of symptoms and evaluation of pain management effectiveness. 3. Preventative Care: Colon Cancer Screening - Discussion of options for colon cancer screening, including Cologuard or scheduling a colonoscopy. Discussion Notes During the visit, we discussed the need to reduce the dosage of OxyContin due to safety concerns and the potential for transitioning to Suboxone for long-term pain management. I explained the importance of exploring alternative pain management strategies and the necessity of a referral to pain management for further evaluation. We also reviewed the options for colon cancer screening, including Cologuard and colonoscopy, and the need for ongoing monitoring of the patient's symptoms. Patient Instructions - Follow the new OxyContin dosage as prescribed: 15 mg twice a day or 10 mg three times a day. - Consider the option of transitioning to Suboxone for pain management. - Schedule an appointment with pain management for further evaluation and potential alternative therapies. - Discuss colon cancer screening options with your spouse and decide between Cologuard or scheduling a colonoscopy. Orders: Referrals Gastroenterology Referral Z12.11 - Encounter for screening for malignant neoplasm of colon
[2025-04-29 08:11] VITALS: BP 158/76; PULSE 41; TEMP 36.8; O2SAT 97; BMI 29.7
== END 2025-04-29 08:44 | disposition home or self-care (01) ==
LOC: HO.HMCSH 08:02
PROVIDERS: PCP Physician Assistant Medical; Visit Provider Internal Medicine
DX: G89.29 Other chronic pain (principal)

== ENCOUNTER → 2025-04-29 08:02 | Outpatient (BNVA) | payer MEDICARE, SELFPAY | PROVIDERS: PCP Physician Assistant Medical; Visit Provider Internal Medicine | DX: G89.29 Other chronic pain (principal); G62.9 Polyneuropathy, unspecified; Z79.891 Long term (current) use of opiate analgesic | CPT/HCPCS: 96127; 99212 ==

== ENCOUNTER 2025-05-29 09:43 | Outpatient (AMB) | payer MEDICARE, SELFPAY ==
--- OUTSIDE RECORDS SUMMARY | 2016-04-18 21:00 | XMS_ITS | Continuity of Care Document ---
Author Organization [facility] Address [address] [place] [address] Care Team Providers Care Animal Skinner Name Role Phone Abdias Vallejo DO Unavailable Unavailable Allergies, Adverse Reactions, Alerts Substance Reaction Status Criticality methylprednisolone Active No Inform ation Medications Medication Instructions Dosage Effective Dates (start - stop) Status Comments OxyContin 20 mg tablet,extended release take 1 tablet by oral route every 8 hours - Active To be filled Mar. Dx: Postlaminectomy sydrome (722.83) 90 day supply ibuprofen 800 mg tablet take 1 tablet by oral route 3 times every day with food 800 MG - Active 90 day suppl y tramadol 50 mg tablet take 1 - 2 Tablet by oral route every 6 hours as needed 50 MG - Active topiramate 100 mg tablet take 1 Tablet by oral route 2 times every day 100 MG - Active 90 day supply OxyContin 20 mg tablet,extended release take 1 tablet by oral route every 8 hours - Active To be filled Aug Dx: Lumbar postlaminectomy syndrome (722.83) Viagra 25 mg tablet take 1 tablet by oral route every day as needed approximately 1 hour before sexual activity 25 MG - Active Procedures Procedure Date AWILDA OFFICE/OUTPATIENT VISIT, EST ASSAY OF ETHANOL DRUG SCREEN, SINGLE OFFICE/OUTPATIENT VISIT, EST OFFICE/OUTPATIENT VISIT, EST ASSAY OF ETHANOL Drug Screen Multiple Class DRUG SCREEN, SINGLE ASSAY OF ETHANOL OFFICE/OUTPATIENT VISIT, EST DRUG SCREEN, SINGLE ASSAY OF ETHANOL OFFICE/OUTPATIENT VISIT, EST OFFICE/OUTPATIENT VISIT, NEW DRUG SCREEN, SINGLE ASSAY OF ETHANOL Advance Directives Directive Yes / No Effective Date File Name No Information Encounters Encounter Description Practice Location Reason(s) For Visit Diagnoses Date Provider Providers Copied on Encounter [facility], [address], [place], [place], [id number] , [facility] No Information 6 Yoni Calero. [address] [facility], [address], [id number] , [place]. tel:[phone] Referring Provider: Abdias Loomis, [address] [facility] [address] [place] [address], [id number] . tel:[phone] OFFICE/OUTPA TIENT VISIT, [facility], [address], [place], [place], [id number] , [facility] low back pain (chief complaint) Degeneration of lumbar or lumbosacral intervertebral discPostlaminec mir syndrome of lumbar region 4 Yoni Calero. [address] [place] [address], [address] [place] [address], [id number] , [place]. tel:[phone] OFFICE/OUTPA TIENT VISIT, EST [facility], [address], [place], [place], [id number] , [facility] Low back pain (chief complaint) Degeneration of lumbar or lumbosacral intervertebral discPostlaminec mir syndrome of lumbar region 4 Yoni Calero. [address] [place] [address], [address] [place] [address], [id number] , [place]. tel:[phone] OFFICE/OUTPA TIENT VISIT, EST [facility], [address], [place], [place], [id number] , [facility] Low back pain (chief complaint) Postlaminectomy syndrome of lumbar regionDegenerat ion of lumbar or lumbosacral intervertebral disc 4 Rayside LaMisa. [address] [place] [address], [id number] , . tel:[phone] [facility], [address], [place], [place], [id number] , [facility] No Information 4 Rayside LaMisa. [address] [place] [address], [address], [id number] , . tel:[phone] OFFICE/OUTPA TIENT VISIT, EST [facility], [address], [place], [place], [phone] , [facility] Low back pain (chief complaint) Degeneration of lumbar or lumbosacral intervertebral discPostlaminec mir syndrome of lumbar region 3 Yoni Calero. [address] [place] [address], [id number] , . tel: [phone] OFFICE/OUTPA TIENT VISIT, EST [facility], [address], [place], [place], [phone] , [facility] Low back pain (chief complaint) Degeneration of lumbar or lumbosacral intervertebral discPostlaminec mir syndrome of lumbar region 3 Yoni Calero. [address] [place] [address], [id number] , [place]. tel: [phone] OFFICE/OUTPA TIENT VISIT, NEW [facility], [address], [place], [place], [id number] , [facility] Low back pain (chief complaint) Postlaminectomy syndrome of lumbar regionDegenerat ion of lumbar or lumbosacral intervertebral disc 3 Yoni Calero. [address] [place] [address], [address], [id number] , [place]. tel:[phone] Family History Family Member Type Diagnosis Age At Onset Father Problem (finding) Mother Problem (finding) Mother Problem (finding) Cancer - pelvic (Cause Of ) Family h/o Problem (finding) Alive and well Sister Problem (finding) Alive and well Father Problem (finding) malignant neop lasm of lung (Cause Of ) Brother Problem (finding) Alive and well Payers Payer name Insurance type Covered libertarian ID Authorosirisa tival(s) No Information Social History Type Description Quantity Date Captured Comments Sex Male Smoking Status No Information Chief Complaint And Reason For Visit No Information Reason For Referral Reason For Referral No Information History Of Present Illness Encounter Date Complaint History Of Prese nt Illness low back pain Severity level i s 7. Duration: 24 Hours. The problem is fluctuating. It occurs persistently. Location of pain is lower back and gluteal area. Pain is radiated to the left foot and left buttock.The patient describes the pain as an ache, deep and numbness. Symptoms are aggravated by changing positions, rolling over in bed, sitting, standing and walking. Symptoms are relieved by lying down, rest and sitting. Low back pain Severity level i s 7. Duration: 24 Hours. The problem is fluctuating. It occurs persistently. Location of pain is lower back. The patient describes the pain as throbbing. Symptoms are aggravated by changing positions, standing and walking. Symptoms are relieved by lying down, rest and sitting. Low back pain Onset: gradual w ith injury. The problem is stable. It occurs persistently. Location of pain is lower back. Pain is radiated to the left ankle, left calf, left foot and left thigh. The patient describes the pain as an ache. Symptoms are aggravated by daily activities and walking. Symptoms are relieved by pain meds/drugs and rest. Low back pain Onset: 10 years ago. Severity level is 8. Duration: 24 Hours. The problem is worsening. It occurs persistently. Location of pain is lower back, gluteal area and right scatric. The patient describes the pain as an ache and stabbing. Symptoms are aggravated by daily activities, rolling over in bed, sitting, standing and walking. Symptoms are relieved by rest and sitting. Low back pain Onset: gradual w ith injury. Duration: 30-60 minutes. Location of pain is lower back, gluteal area and legs. Pain is radiated to the left arm, left calf and left foot. Context: lifting a heavy object. Symptoms are aggravated by changing positions, daily activities, sitting, standing and walking. Symptoms are relieved by lying down, pain meds/drugs, rest and sitting. Low back pain Onset: sudden wi th injury. Severity level is moderate-severe. Duration: > 1 hour. Location of pain is lower back. Pain is radiated to the back, left calf, left foot and left thigh. The patient describes the pain as an ache, burning, diffuse, discomforting, numbness, stabbing, superficial and throbbing. Context: pushing. Symptoms are aggravated by ascending stairs, bending, daily activities, descending stairs, extension, flexion, jumping, lifting, pushing, standing, twisting and walking. Symptoms are relieved by pain meds/drugs. Additional information: pt has tried physical therapy, lumbar karly's, medical branch blocks, and , tens units, without relief for his pain, per pt report. Functional Status Date Functional Assessmen t No Information Instructions Date Instruction Additional Infor mation No Information Assessments Type Assessment Date No Information Patient Care Teams Name Effective Dates (start - stop) Status Members No Information
[2025-05-29 09:28] VITALS: BP 133/62; PULSE 70; RESP 16; TEMP 36; O2SAT 99; BMI 29.4
--- NOTE | 2025-05-29 09:28 | A.OFFPC_ITS ---
Vital Signs 05/29/25 09:28 Height 6 ft 6 in Weight 254 lb 6 oz BMI 29.4 BP 133/62 Blood Pressure Location Lt brachial Position Sitting Respiration 16 Pulse 70 Pulse Source Pulse Oximeter Temp 96.8 F Temp Source Temporal Artery Scan Pulse Oximetry (%) 99 Oxygen Delivery Method Room Air Intake Visit Reasons: 1 month follow up Rayon Coner Required: No Accompanied by: Self / Same As Patient Allergies No Known Allergies Allergy (Verified 05/29/25 11:58) Medication List - Last Reconciled 05/29/25 by Marta Amato PA-C ibuprofen 800 mg PO TID naloxone 4 mg/actuation (Narcan) 4 mg intranasal Q2M PRN oxycodone ER (OxyContin) 15 mg PO BID 30 days simvastatin 20 mg PO BEDTIME topiramate 100 mg PO BID tramadol 100 mg PO BID PRN Tobacco use date assessed: 05/29/25 Dental Screening Dental Screen Date: 05/29/25 Did you have a dental visit in the last 12 months?: No HPI 1 month follow up HPI Details The patient is a 60-year-old male presenting for medication management related to narcotic prescriptions. During the previous visit, the patient's narcotic dosage was reduced to 15 mg twice a day, along with tramadol 100 mg twice a day. There was a delay of three days in receiving the prescription, which was a concern for the patient. The patient was informed about the necessity of a drug urine screen as part of the pain management contract, which he reportedly did not receive a copy of. The patient expressed frustration over not being provided with a copy of the contract and the lack of a receipt for a previous payment. He was advised that without completing the drug urine screen, his medication could not be refilled as that was part of the pain contract that he signed himself last month and discussed with Dr. Hernández. [facility] Medical History Mild hypercholesterolemia Vertigo Chronic pain Surgical History History of colonoscopy (~11/23/11) Family History Father No problems noted. Mother No problems noted. Social History Housing: Apartment Alcohol intake: current Alcohol intake frequency: does not drink Patient Tobacco Use Status: Never used Tobacco service: No Current occupational status: unemployed Cognitive needs: No Hearing needs: No Vision needs: Yes (reading glasses) Questionnaire PHQ-9 Over the last 2 weeks, how often have you been bothered by any of the following problems? 1. Little interest or pleasure in doing things: not at all 2. Feeling down, depressed, or hopeless: not at all 3. Trouble falling or staying asleep, or sleeping too much: not at all 4. Feeling tired or having little energy: not at all 5. Poor appetite or overeating: not at all 6. Feeling bad about yourself - or that you are a failure or have let yourself or your family down: not at all 7. Trouble concentrating on things, such as reading the newspaper or watching television: not at all 8. Moving or speaking so slowly that other people could have noticed. Or the opposite - being so fidgety or restless that you have been moving around a lot more than usual: not at all 9. Thoughts that you would be better off or of hurting yourself in some way: not at all Total score: 0 Depression Screening Interpretation: Negative Depression Screening Done: Yes 22213 - PHQ-9 Billing: Yes Source: Developed by Drs. Carroll Anderson, Stacia Gardner, Osmel Rios and colleagues, with an educational xi from [employer] Thrive Questionnaire Date Thrive assessed: 05/29/25 I am a: Patient What is your living situation today?: I have a steady place to live Within the past 12 months, did the food you bought not last and you didn't have the money to get more?: Never true Within the past 12 months, did you worry whether your food would run out before you got money to buy more?: Never true Do you have trouble paying for medicines?: No Do you have trouble getting transportation to medical appointments?: No Do you have trouble paying your heating and electricity bill?: No Do you have trouble taking care of your child, family member or friend?: No Do you have trouble with day-to-day activities such as bathing, preparing meals, shopping, managing finances, etc.?: No Are you currently unemployed and looking for a job?: No Are you interested in more education?: No Please select the resources that you would like help with: None Currently or been in a relationship where the following occur: No concerns reported THRIVE Score: 0 AUDIT C Alcohol Use Questionnaire (AUDIT-C) 1. How often do you have a drink containing alcohol?: Never 3. How often do you have six or more drinks on one occasion?: Never Total Score: 0 Score Reviewed/Action Taken: No TYREE-7 AMB Questionnaire TYREE-7 Date TYREE - 7 assessed: 05/29/25 Feeling nervous, anxious, or on edge: 0 = Not at all Not being able to stop or control worryin = Not at all Worrying too much about different things: 0 = Not at all Trouble relaxin = Not at all Being so restless that it is hard to sit still: 0 = Not at all Becoming easily annoyed or irritable: 0 = Not at all Feeling afraid as if something awful might happen: 0 = Not at all Total TYREE-7 score (0-4 normal; 5-9 mild; 10-14 moderate; 15-21 severe): 0 Source: Developed by Drs. Carroll Anderson, Stacia Gardner, Osmel Rios and colleagues, with an educational xi from [employer] TYREE-7 Assessment Billing TYREE-7 Assessment Tool: TYREE-7 Assessment 71948 Review of Systems Const All systems reviewed & are unremarkable except as noted in HPI and below Physical exam (Primary Care) Vital Signs: Last Vital Signs Temp 96.8 F 05/29/25 09:28 Pulse 70 05/29/25 09:28 Resp 16 05/29/25 09:28 BP 133/62 05/29/25 09:28 Pulse Ox 99 05/29/25 09:28 Oxygen Delivery Method Room Air 05/29/25 09:28 Care Plan Goal for BP management: <140/90 at Goal BMI result Body Mass Index 29.4 BMI Assessment/Plan discussion: High BMI High, discussed plan: lifestyle, weight reduction, dietary, physical activity, alcohol moderation and other Tobacco/Smoking Status: Tobacco use Status Tobacco use date assessed 05/29/25 05/29/25 09:39 Patient Tobacco Use Status Never used Tobacco 05/29/25 09:39 PHQ-9: PHQ-9 Score PHQ-9: Total score 0 05/29/25 09:39 Depression Screening Interpretation: Negative Thrive Assessment: Date of Thrive Assessment Date Thrive assessed 05/29/25 05/29/25 09:39 Currently or been in a relationship where the following occur: No concerns reported Const Other: Appearance: Alert. Oriented X3. No acute distress. Head: Normal external exam. Normocephalic. Atraumatic. Eyes: Pupils are equal, round, and reactive to light. Extraocular movements intact. Conjunctiva and sclera normal. Eyelids normal. Throat: Moist mucous membranes. Neck: Normal inspection. Neck supple. Full range of motion. Cardiovascular: Normal heart rate and rhythm. Respiratory: No respiratory distress. Painless inspiration. Back: Full range of motion noted. Skin: Skin warm and dry. Normal skin color. Coding Level of Care Code Est Pt Level 4 (58849) Complex EM visit Add On G2211 Diagnoses Chronic pain G89.29 Additional Codes TYREE-7 Assessment Billing - TYREE-7 Assessment Tool: TYREE-7 Assessment 57699 ([id number]) PHQ-9 - 59043 - PHQ-9 Billing: Yes ([id number]) Assessment & Plan Assessment & Plan (1) Chronic pain: Code(s): G89.29 - Other chronic pain Category: Medical Plan: I discussed with the patient the importance of adhering to the pain management contract, which includes completing a drug urine screen. I informed him that without this compliance, I would not be able to refill his narcotic prescriptions. Plan Plan Patient was informed and verbally consented to the use of an ambient scribe for clinic note documentation during this visit. Chronic Pain -I discussed with the patient the importance of adhering to the pain management contract, which includes completing a drug urine screen. I informed him that without this compliance, I would not be able to refill his narcotic prescriptions. Patient Instructions: - Complete the drug urine screen today to ensure continuation of medication prescriptions. - Contact the clinic if there are any questions or issues with the pain management contract.
--- OUTSIDE RECORDS SUMMARY | 2025-05-29 10:52 | XMS_ITS | Patient Health Record ---
Author Organization [facility] Address [address] [place] [id number] Care Team Providers Care Intelligence Officer Basic Name Role Phone JACQUIE GONZALEZ PA-C Primary Care Provider Saman Sharp Jr Unavailable Reason For Referral No Information Medications Medication [...] Problem Status W/U Status Risk Notes Problem Feces contents abnormal ([id number]) Nonspecific abnormal finding in stool contents (792.1) Active confirmed Plan Of Treatment Future Test Test Name Order Date COLONOSCOPY 10/06/2011 Next Appt Details Provider Name:Saman garcia Jr, 09/03/2025 10:20:00 AM, [address], [address], [place], [address], Insurance Providers Payer Name Payer Address Payer Phone Subscriber Number Group Number Insured Name Patient Relationship to Insured Coverage Start Date Coverage End Date MEDICARE OF JUL[employer] PERAL[employer] [id number] [place] [id number] BRANDON BALJEET Self - patient is the insured Medical (General) History Medical History History ICD Code disc disease depression elevated cholesterol low testosterone Surgical History Surgery Date(Month/Year) back surgery
--- OUTSIDE RECORDS SUMMARY | 2025-05-29 10:52 | XMS_ITS | Patient Health Record ---
Author Organization [facility] Address [address] [place] [address] Care Team Providers Care Jewelry Jobber Name Role Phone Kenan Pineda MD Primary Care Provider Unavailab Danny Caro Unavailable [phone] Allergies Allergen (clinical drug ingredient) Drug/Non Drug [...] Inc [address] [place] [address] [id number] Vince Hudson Self - patient is the insured Medical (General) History Medical History History ICD Code Back pain CAD Surgical History Surgery Date(Month/Year) herniated disk repair 05/2003
== END 2025-05-29 09:56 | disposition home or self-care (01) ==
LOC: HO.HMCSH 09:45
PROVIDERS: PCP Physician Assistant Medical; Visit Provider Physician Assistant Medical
DX: G89.29 Other chronic pain (principal)

== ENCOUNTER → 2025-05-29 09:43 | Outpatient (BNVA) | payer MEDICARE, SELFPAY | PROVIDERS: PCP Physician Assistant Medical; Visit Provider Physician Assistant Medical | DX: G89.29 Other chronic pain (principal); Z51.81 Encounter for therapeutic drug level monitoring; Z79.891 Long term (current) use of opiate analgesic | CPT/HCPCS: 96127; 99212 ==

== ENCOUNTER 2025-06-05 08:05 | Outpatient (REF) | payer OTHER, MEDICARE, SELFPAY ==
[2025-06-05 08:52] LABS: Cannabinoid Screen Urine Not Detected (Not Detect)
== END 2025-06-05 08:06 | disposition home or self-care (01) ==
LOC: HO.LAB 08:05
PROVIDERS: PCP Internal Medicine; Visit Provider Internal Medicine
DX: G89.4 Chronic pain syndrome (principal); Z51.81 Encounter for therapeutic drug level monitoring
CPT/HCPCS: 80307

== ENCOUNTER 2025-08-07 09:51 | Outpatient (AMB) | payer MEDICARE, SELFPAY ==
--- NOTE | 2025-08-07 10:04 | A.OFFPC_ITS ---
Vital Signs 08/07/25 10:05 08/07/25 10:10 Height 6 ft 6 in Weight 257 lb BMI 29.7 BP 147/72 H 131/61 Blood Pressure Location Rt brachial Lt brachial Position Sitting Sitting Respiration 14 Pulse 88 Pulse Source Pulse Oximeter Temp 97.6 F Temp Source Temporal Artery Scan Pulse Oximetry (%) 96 Oxygen Delivery Method Room Air Intake Visit Reasons: follow up Beet Topper Required: No Accompanied by: Self / Same As Patient Allergies No Known Allergies Allergy (Verified 08/07/25 12:59) Medication List - Last Reconciled 08/07/25 by Marta Amato PA-C ibuprofen 800 mg PO TID naloxone 4 mg/actuation (Narcan) 4 mg intranasal Q2M PRN oxycodone ER (OxyContin) 15 mg PO BID 30 days simvastatin 20 mg PO BEDTIME topiramate 100 mg PO BID tramadol 100 mg PO BID PRN Tobacco use date assessed: 05/29/25 Dental Screening Dental Screen Date: 05/29/25 HPI HPI Comments History of Present Illness Details History of Present Illness The patient is a 60 year old male presenting for management of his pain contract. He is currently prescribed oxycodone 50 mg twice daily and tramadol 100 mg twice daily for back pain. The patient's back pain is secondary to a herniated disc injury in 2002, for which he underwent surgery. Post-operatively, he developed right foot numbness, which has persisted and is estimated at 80% numbness. He also reports a history of sciatica in the right leg, which was more frequent initially and now occurs rarely in the left leg with certain movements. Past interventions for his pain include injections, which he had around the time of his initial injury, and a trial of gabapentin and Neurontin, which caused adverse effects. He had several MRIs early on after the injury. The patient reports that when he was without his pain medication for a week, he tried Tylenol and Aleve without relief and experienced significant pain that disrupted his sleep. Early on, he declined a neurostimulator implant. The patient has no history of cancer. He denies having a pacemaker or any other implantable devices. [facility] Medical History (Updated 08/07/25 @ 13:02 by Marta Amato PA-C) Opioid dependence Lumbar herniated disc Chronic back pain Mild hypercholesterolemia Vertigo Chronic pain Surgical History History of colonoscopy (~11/23/11) Family History Father No problems noted. Mother No problems noted. Social History Housing: Apartment Alcohol intake: current Alcohol intake frequency: does not drink Patient Tobacco Use Status: Never used Tobacco service: No Current occupational status: unemployed Cognitive needs: No Hearing needs: No Vision needs: Yes (reading glasses) Questionnaire PHQ-9 Over the last 2 weeks, how often have you been bothered by any of the following problems? 1. Little interest or pleasure in doing things: not at all 2. Feeling down, depressed, or hopeless: not at all 3. Trouble falling or staying asleep, or sleeping too much: not at all 4. Feeling tired or having little energy: not at all 5. Poor appetite or overeating: not at all 6. Feeling bad about yourself - or that you are a failure or have let yourself or your family down: not at all 7. Trouble concentrating on things, such as reading the newspaper or watching television: not at all 8. Moving or speaking so slowly that other people could have noticed. Or the opposite - being so fidgety or restless that you have been moving around a lot more than usual: not at all 9. Thoughts that you would be better off or of hurting yourself in some way: not at all Total score: 0 Depression Screening Interpretation: Negative Depression Screening Done: Yes 96630 - PHQ-9 Billing: Yes Source: Developed by Drs. Carroll Anderson, Stacia Gardner, Osmel iRos and colleagues, with an educational xi from [employer]. Thrive Questionnaire Date Thrive assessed: 05/29/25 I am a: Patient What is your living situation today?: I have a steady place to live Within the past 12 months, did the food you bought not last and you didn't have the money to get more?: Never true Within the past 12 months, did you worry whether your food would run out before you got money to buy more?: Never true Do you have trouble paying for medicines?: No Do you have trouble getting transportation to medical appointments?: No Do you have trouble paying your heating and electricity bill?: No Do you have trouble taking care of your child, family member or friend?: No Do you have trouble with day-to-day activities such as bathing, preparing meals, shopping, managing finances, etc.?: No Are you currently unemployed and looking for a job?: No Are you interested in more education?: No Please select the resources that you would like help with: None Currently or been in a relationship where the following occur: No concerns reported THRIVE Score: 0 AUDIT C Alcohol Use Questionnaire (AUDIT-C) 1. How often do you have a drink containing alcohol?: Never 3. How often do you have six or more drinks on one occasion?: Never Total Score: 0 Score Reviewed/Action Taken: No TYREE-7 AMB Questionnaire TYREE-7 Date TYREE - 7 assessed: 05/29/25 Feeling nervous, anxious, or on edge: 0 = Not at all Not being able to stop or control worryin = Not at all Worrying too much about different things: 0 = Not at all Trouble relaxin = Not at all Being so restless that it is hard to sit still: 0 = Not at all Becoming easily annoyed or irritable: 0 = Not at all Feeling afraid as if something awful might happen: 0 = Not at all Total TYREE-7 score (0-4 normal; 5-9 mild; 10-14 moderate; 15-21 severe): 0 Source: Developed by Drs. Carroll Anderson, Stacia Gardner, Osmel Rios and colleagues, with an educational xi from [employer]. TYREE-7 Assessment Billing TYREE-7 Assessment Tool: TYREE-7 Assessment 51629 Review of Systems Narrative Review of Systems - Constitutional: Denies cancer. - Neurological: Reports persistent numbness in the right foot post-surgery. Reports history of sciatica, primarily in the right leg. - Musculoskeletal: Reports chronic back pain originating from an injury. - All other systems were reviewed and are negative. Const All systems reviewed & are unremarkable except as noted in HPI and below Physical exam (Primary Care) Vital Signs: Last Vital Signs Temp 97.6 F 08/07/25 10:05 Pulse 88 08/07/25 10:05 Resp 14 08/07/25 10:05 BP 131/61 08/07/25 10:10 Pulse Ox 96 08/07/25 10:05 Oxygen Delivery Method Room Air 08/07/25 10:05 Care Plan Goal for BP management: <140/90 at Goal BMI result Body Mass Index 29.7 BMI Assessment/Plan discussion: High BMI High, discussed plan: lifestyle, weight reduction, dietary, physical activity, alcohol moderation and other Tobacco/Smoking Status: Tobacco use Status Tobacco use date assessed 05/29/25 08/07/25 10:11 Patient Tobacco Use Status Never used Tobacco 08/07/25 10:11 PHQ-9: PHQ-9 Score PHQ-9: Total score 0 08/07/25 10:11 Depression Screening Interpretation: Negative Thrive Assessment: Date of Thrive Assessment Date Thrive assessed 05/29/25 08/07/25 10:11 Currently or been in a relationship where the following occur: No concerns reported Narrative Physical Exam Appearance: Alert. Oriented X3. No acute distress. Head: Normal external exam. Normocephalic. Atraumatic. Eyes: Pupils are equal, round, and reactive to light. Extraocular movements intact. Conjunctiva and sclera normal. Eyelids normal. Throat: Pharynx normal. Uvula midline. Moist mucous membranes. Neck: Normal inspection. Neck supple. Full range of motion. Cardiovascular: Normal heart rate and rhythm. Respiratory: No respiratory distress. Painless inspiration. Back: Full range of motion noted. History of herniated disc surgery in 2002 with persistent numbness in the right foot since surgery. Skin: Skin warm and dry. Normal skin color. Extremities: Extremities exhibit normal range of motion. Right foot 80% numb since surgery per patient. Coding Level of Care Code Est Pt Level 4 (97186) Add On Problem Visit Only Diagnoses Chronic back pain M54.9; G89.29 Lumbar herniated disc M51.26 Opioid dependence F11.20 Additional Codes TYREE-7 Assessment Billing - TYREE-7 Assessment Tool: TYREE-7 Assessment 53596 ([id number]) PHQ-9 - 55412 - PHQ-9 Billing: Yes ([id number]) Time Spent (min) 60 Assessment & Plan Assessment & Plan (1) Chronic back pain: Code(s): M54.9 - Dorsalgia, unspecified; G89.29 - Other chronic pain Category: Medical Plan: The plan is to continue tapering the patient's opioid medications, including oxycodone and tramadol, with the goal of reducing dependency and moving toward alternative pain management strategies. A referral will be made to Pain Management for evaluation of alternative therapies such as injections. An MRI of the lumbar spine will be ordered to re-evaluate his condition, given the injury was over 20 years ago. A referral to [facility] will also be considered to assist with the weaning process and provide alternate therapies. Other non-opioid options discussed include physical therapy, ibuprofen 800mg, high-dose Tylenol, and various muscle relaxers such as Flexeril, Skelaxin. Final decisions on the tapering schedule will be made after consulting with Dr. Fisher. The frequency of follow-up visits will be determined by the weaning plan, with monthly visits for active tapering and visits every three months once a stable, lower dose is achieved. I discussed this with Dr. Hernández he recommended weaning the patient down from the tramadol at this visit patient is currently on tramadol [address] Hernández recommended decreasing him to 100 mg once daily although patient reported if he can have 50 mg twice a day instead of 100 mg once daily which I agreed to at this time. He will follow up with Dr. Hernández in [address] Hernández will continue the weaning process of these narcotics. (2) Lumbar herniated disc: Comment: Twenty through 25 years ago work-related injury had surgery at the [facility] reports chronic numbness to right lower extremity on chronic pain medication was a patient of Dr. Pineda Code(s): M51.26 - Other intervertebral disc displacement, lumbar region Category: Medical (3) Opioid dependence: Code(s): F11.20 - Opioid dependence, uncomplicated Category: Medical Plan Plan Patient was informed and verbally consented to the use of an ambient scribe for clinic note documentation during this visit. 1. Chronic Back Pain And Opioid Dependence The plan is to continue tapering the patient's opioid medications, including oxycodone and tramadol, with the goal of reducing dependency and moving toward alternative pain management strategies. A referral will be made to Pain Management for evaluation of alternative therapies such as injections. An MRI of the lumbar spine will be ordered to re-evaluate his condition, given the injury was over 20 years ago. A referral to the [facility]) will also be considered to assist with the weaning process and provide alternate therapies. Other non-opioid options discussed include physical therapy, ibuprofen 800mg, high-dose Tylenol, and various muscle relaxers such as Flexeril, Skelaxin, or Mobig. Final decisions on the tapering schedule will be made after consulting with Dr. Fisher. The frequency of follow-up visits will be determined by the weaning plan, with monthly visits for active tapering and visits every three months once a stable, lower dose is achieved. I discussed this with Dr. Hernández he recommended weaning the patient down from the tramadol at this visit patient is currently on tramadol [address] Hernández recommended decreasing him to 100 mg once daily although patient reported if he can have 50 mg twice a day instead of 100 mg once daily which I agreed to at this time. He will follow up with Dr. Hernández in [address] Hernández will continue the weaning process of these narcotics. Discussion Notes I had an extended discussion with the patient regarding the clinic's policy on tapering long-term opioid use for non-cancer pain. I explained that this is a practice-wide initiative aimed at improving patient safety and that even cancer specialists are moving away from high-dose narcotics for pain management. I emphasized the importance of exploring alternative therapies to address the root cause of his pain rather than relying solely on medications that only manage symptoms. We discussed ordering a new lumbar spine MRI and referring him to Pain Management for therapies like injections, which have advanced in the 20 years since his last treatment. The patient expressed willingness to schedule an appointment with Pain Management. I informed the patient that his cooperation with these referrals is crucial, as refusal could lead to an accelerated tapering of his medications. I reviewed the clinic's position, noting that while we are willing to taper him gradually, other institutions like [facility] or [facility] often refuse to continue opioid prescriptions from prior providers altogether. I explained that prescriptions for chronic conditions like diabetes or hypertension are legally required to be continued, but narcotic prescriptions for chronic pain are not. I informed him that I will follow up with Dr. Fisher to confirm the weaning plan and will call him with the details of his next appointment. Orders: Orders MR lumbar spine wo con Today G89.29 - Other chronic pain, M51.26 - Other intervertebral disc displacement, lumbar region, M54.9 - Dorsalgia, unspecified PT Evaluation and Treatment Today G89. - Other chronic pain, M51.26 - Other intervertebral disc displacement, lumbar region, M54.9 - Dorsalgia, unspecified Referrals Addiction Medicine Referral G89.29 - Other chronic pain, M51.26 - Other intervertebral disc displacement, lumbar region, M54.9 - Dorsalgia, unspecified Patient Instructions: Patient Instructions - You will be scheduled for an MRI of your lower back to get an updated look at the area of your past surgery. - Please schedule an appointment with the Pain Management clinic to discuss other treatment options for your back pain, such as injections. - It is very important that you attend this appointment, as continuing your current medication depends on exploring other options. - We will continue to gradually lower the dose of your pain medications. We will discuss using other medicines like ibuprofen, Tylenol, or muscle relaxers to hel p manage your pain. - Our office will call you to let you know the next steps for lowering your medication and when your next appointment will be, which could be in one month or three months.
[2025-08-07 10:05] VITALS: BP 147/72; PULSE 88; RESP 14; TEMP 36.4; O2SAT 96; BMI 29.7
[2025-08-07 10:10] VITALS: BP 131/61
== END 2025-08-07 10:46 | disposition home or self-care (01) ==
LOC: HO.HMCSH 09:51
PROVIDERS: PCP Internal Medicine; Visit Provider Physician Assistant Medical
DX: M54.9 Dorsalgia, unspecified (principal); G89.29 Other chronic pain; M51.26 Other intervertebral disc displacement, lumbar region; F11.20 Opioid dependence, uncomplicated

== ENCOUNTER → 2025-08-07 09:51 | Outpatient (BNVA) | payer MEDICARE, SELFPAY | PROVIDERS: PCP Internal Medicine; Visit Provider Physician Assistant Medical | DX: M51.26 Other intervertebral disc displacement, lumbar region (principal); G89.29 Other chronic pain; M54.9 Dorsalgia, unspecified; F11.20 Opioid dependence, uncomplicated; Z13.31 Encounter for screening for depression | CPT/HCPCS: 96127; 99212 ==